=== PATIENT | female | born 1960 | race Caucasian/White ===

== ENCOUNTER 2021-01-19 12:16 | Emergency (ER) | payer OTHER ==
[~2021-01-19] VITALS: Ht 165.1 cm; Wt 74.8 kg
[~2021-01-19 12:16] MED LIST: SYNTHROID125 MCG PO
== END 2021-01-19 18:00 | disposition home or self-care (01) ==
LOC: ER 12:16
DX: R06.02 Shortness of breath (principal); Z11.52 Encounter for screening for COVID-19

== ENCOUNTER 2021-06-26 15:33 | Emergency (ER) | payer OTHER ==
[~2021-06-26] VITALS: Ht 167.6 cm; Wt 59.0 kg
[2021-06-26] MEDS ORDERED: GRALISE600 MG (15:40)
[2021-06-26] MEDS ORDERED: TOPROL XL50 M1 (15:40)
[2021-06-26] MEDS ORDERED: LOSARTAN POTASS50 MG (15:40)
[2021-06-26] MEDS ORDERED: MONTELUKAST SODI4 M1 (15:41)
== END 2021-06-26 20:45 | disposition home or self-care (01) ==
LOC: ER 15:33
DX: R10.31 Right lower quadrant pain (principal); J45.998 Other asthma; I10 Essential (primary) hypertension
CPT/HCPCS: 74177; Q9965

== ENCOUNTER 2022-07-14 13:59 | Outpatient (CLI) | payer OTHER ==
[~2022-07-14 13:59] MED LIST changes: +GRALISE600 MG; +LOSARTAN POTASS50 MG; +MONTELUKAST SODI4 M1; +TOPROL XL50 M1
== END 2022-07-14 14:09 | disposition home or self-care (01) ==
LOC: PPH VACUNA 13:59
PROVIDERS: ATTEND Emergency Medicine Pediatric Emergency Medicine
DX: Z23 Encounter for immunization (principal)

== ENCOUNTER 2023-05-28 09:57 | Outpatient (CLI) | payer OTHER | END 2023-05-28 10:11 | disposition home or self-care (01) | LOC: TOM 09:57 | PROVIDERS: ATTEND Internal Medicine Gastroenterology | DX: R10.9 Unspecified abdominal pain (principal); Z88.2 Allergy status to sulfonamides ==